=== PATIENT | female | born 1970 | race Caucasian/White ===

== ENCOUNTER 2018-02-17 12:27 | Day surgery (SDC) | payer MEDICARE ==
[2018-02-17] MEDS ORDERED: Depo-Medrol 40 MG/ML IM ONE (12:28)
[2018-02-17] MEDS ORDERED: Xylocaine 1% Vial 30 ML PF IJ ONE (12:28)
[2018-02-17] MEDS ORDERED: DIPRIVAN 200 MG/20 ML IV ONE (12:28)
[2018-02-17] MEDS ORDERED: Sodium Chloride 0.9% 10 ML FLUSH Syringe IJ ONE (12:28)
[2018-02-17] MEDS ORDERED: Lactated Ringers 1,000 ML IV ONE (13:05)
--- NOTE | 2018-02-17 14:33 | XRAY ---
Indication: Lumbar ELÍAS. Intraoperative fluoroscopy was provided for 28 seconds. 3 digital spot images submitted for interpretation demonstrates a posterior spinal needle tip posterior to the L4-L5 interspace. Correlate with intraoperative findings/report.
--- NOTE | 2018-02-17 14:36 | XRAY ---
28 seconds fluoroscopy time in surgery for lumbar ELÍAS.
== END 2018-02-17 13:35 | disposition home or self-care (01) ==
LOC: SDC-PAIN 12:27
PROVIDERS: ATTEND Psychiatry & Neurology Pain Medicine
DX: M54.16 Radiculopathy, lumbar region (principal)
CPT/HCPCS: 62323; 72100; 77003; J1030; J2001; J2704; Q9966

== ENCOUNTER 2018-10-13 09:48 | Day surgery (SDC) | payer MEDICARE ==
[2018-10-13] MEDS ORDERED: Marcaine 0.5% SDV 10 ML IJ ONE (09:49)
[2018-10-13] MEDS ORDERED: Depo-Medrol 40 MG/ML IM ONE (09:49)
[2018-10-13] MEDS ORDERED: Ketamine HCl 50 MG/ML ONE (11:40)
[2018-10-13] MEDS ORDERED: DIPRIVAN 200 MG/20 ML IV ONE (11:40)
--- NOTE | 2018-10-13 12:37 | XRAY ---
Indication: Left knee injection. Intraoperative fluoroscopy was provided for 6 seconds. Single digital spot image submitted for interpretation demonstrates needle tip projecting over the left knee intercondylar notch. Small amount of contrast injected for needle tip placement. Correlate with intraoperative findings/report.
--- NOTE | 2018-10-13 12:37 | XRAY ---
8 seconds fluoroscopy time in surgery for right knee injection.
--- NOTE | 2018-10-13 12:46 | XRAY ---
6 seconds fluoroscopy time in surgery for left knee injection.
--- NOTE | 2018-10-13 12:47 | XRAY ---
Indication: Right knee injection. Intraoperative fluoroscopy was provided for 8 seconds. Single digital spot image submitted for interpretation demonstrates needle tip projecting over the right knee intercondylar notch. Small amount of contrast injected for needle tip placement. Correlate with intraoperative findings/report.
[2018-10-13] MEDS ORDERED: Lactated Ringers 1,000 ML IV ONE (13:27)
== END 2018-10-13 12:10 | disposition home or self-care (01) ==
LOC: SDC-PAIN 09:48
PROVIDERS: ATTEND Psychiatry & Neurology Pain Medicine
DX: M17.0 Bilateral primary osteoarthritis of knee (principal); M25.561 Pain in right knee; M25.562 Pain in left knee; I10 Essential (primary) hypertension; E78.5 Hyperlipidemia, unspecified; F32.9 Major depressive disorder, single episode, unspecified
CPT/HCPCS: 20610; 73560; 77002; 84703; J1030; J2704; Q9966

== ENCOUNTER 2018-12-01 12:03 | Day surgery (SDC) | payer MEDICARE ==
[2018-12-01] MEDS ORDERED: Depo-Medrol 40 MG/ML IM ONE (12:04)
[2018-12-01] MEDS ORDERED: Marcaine 0.5% SDV 10 ML IJ ONE (12:04)
[2018-12-01] MEDS ORDERED: DIPRIVAN 200 MG/20 ML IV ONE (13:02)
[2018-12-01] MEDS ORDERED: Ketamine HCl 50 MG/ML ONE (13:02)
--- NOTE | 2018-12-01 14:32 | XRAY ---
Indication: Left SI joint injection. Intraoperative fluoroscopy was provided for 11 seconds. 2 digital spot images submitted for interpretation demonstrates posterior needle tip projecting over the inferior left SI joint. Correlate with intraoperative findings/report.
[2018-12-01] MEDS ORDERED: Lactated Ringers 1,000 ML IV ONE (15:25)
--- NOTE | 2018-12-01 16:21 | XRAY ---
11 seconds fluoroscopy time in surgery for left SI joint injection.
== END 2018-12-01 13:28 | disposition home or self-care (01) ==
LOC: SDC-PAIN 12:03
PROVIDERS: ATTEND Psychiatry & Neurology Pain Medicine
DX: M46.1 Sacroiliitis, not elsewhere classified (principal); I10 Essential (primary) hypertension; E78.5 Hyperlipidemia, unspecified; F32.9 Major depressive disorder, single episode, unspecified; Z79.899 Other long term (current) drug therapy
CPT/HCPCS: 72020; 77002; 84703; G0260; 27096; J1030; J2704

== ENCOUNTER 2019-11-23 09:39 | Day surgery (SDC) | payer MEDICARE ==
[2019-11-23] MEDS ORDERED: Depo-Medrol 40 MG/ML IM ONE (09:40)
[2019-11-23] MEDS ORDERED: BUPIVACAINE 0.5% VIAL IJ ONE (09:40)
[2019-11-23] MEDS ORDERED: DIPRIVAN 200 MG/20 ML IV ONE (11:41)
[2019-11-23] MEDS ORDERED: Ketamine HCl 50 MG/ML ONE (11:41)
[2019-11-23] MEDS ORDERED: Lactated Ringers 1,000 ML IV ONE (14:40)
--- NOTE | 2019-11-23 16:38 | XRAY ---
Indication: Bilateral SI joint injection. Intraoperative fluoroscopy was provided for 30 seconds. 4 digital spot images submitted for interpretation demonstrates posterior needle tip projecting over the inferior left and right SI joint. Correlate with intraoperative findings/report.
--- NOTE | 2019-11-23 17:10 | XRAY ---
30 seconds of fluoroscopy was used in surgery for a bilateral SI joint injection.
== END 2019-11-23 12:09 | disposition home or self-care (01) ==
LOC: SDC-PAIN 09:39
PROVIDERS: ATTEND Psychiatry & Neurology Pain Medicine
DX: M19.012 Primary osteoarthritis, left shoulder (principal); M19.011 Primary osteoarthritis, right shoulder; Z79.899 Other long term (current) drug therapy
CPT/HCPCS: 27096; 72202; 77002; 84703; J1030; J2704; G0260

== ENCOUNTER 2021-09-11 13:22 | Day surgery (SDC) | payer MEDICARE ==
[2021-09-11] MEDS ORDERED: Marcaine Mpf 0.5% Vial 30 Ml IJ ONE (13:23)
[2021-09-11] MEDS ORDERED: Depo-Medrol 40 MG/ML IM ONE (13:23)
[2021-09-11] MEDS ORDERED: DIPRIVAN 200 MG/20 ML IV ONE (16:09)
[2021-09-11] MEDS ORDERED: Lactated Ringers 1,000 ML IV ONE (16:36)
--- NOTE | 2021-09-11 17:01 | XRAY ---
Indication: Bilateral SI joint injection. Intraoperative fluoroscopy provided for 26 seconds. 5 digital spot image submitted for interpretation demonstrates posterior needle tip projecting over the inferior left and right SI joints. Correlate with intraoperative findings/report.
--- NOTE | 2021-09-11 17:20 | XRAY ---
26 seconds of fluoroscopy was used in surgery for bilateral SI joint injections.
== END 2021-09-11 16:41 | disposition home or self-care (01) ==
LOC: SDC-PAIN 13:22
PROVIDERS: ATTEND Psychiatry & Neurology Pain Medicine
DX: M46.1 Sacroiliitis, not elsewhere classified (principal); I10 Essential (primary) hypertension; Z79.899 Other long term (current) drug therapy
CPT/HCPCS: 27096; 72202; 77002; 84703; G0260; J1030; J2704